=== PATIENT | female | born 1995 | race Caucasian/White ===

== ENCOUNTER 2021-03-10 16:47 | Emergency (ER) | payer OTHER, SELFPAY ==
[2021-03-10 17:45] VITALS: BP 121/75; PULSE 91; RESP 16; TEMP 36.9; O2SAT 98; BMI 25.2
== END 2021-03-10 20:09 | disposition left against medical advice (07) ==
PROVIDERS: Emergency Provider Emergency Medicine
DX: R55 Syncope and collapse (principal)
CPT/HCPCS: 99281; 99282